=== PATIENT | female | born 1995 | race Caucasian/White ===

== ENCOUNTER 2019-11-14 17:19 | Emergency (ER) | payer SELFPAY ==
[~2019-11-14] VITALS: Ht 162.6 cm; Wt 59.0 kg
[2019-11-14 17:23] VITALS: BP 142/86
== END 2019-11-14 18:50 | disposition left against medical advice (07) ==
LOC: ER 17:19
DX: Z53.21 Procedure and treatment not carried out due to patient leaving prior to being seen by health care provider (principal)